=== PATIENT | female | born 1975 | race Caucasian/White ===

== ENCOUNTER → 2018-11-20 | Outpatient (CLI) | payer OTHER | LOC: COL.VAS 08:24 | DX: R03.0 Elevated blood-pressure reading, without diagnosis of hypertension (principal) ==

== ENCOUNTER → 2018-11-28 | Outpatient (CLI) | payer OTHER | LOC: COL.RAD 13:22 | DX: I10 Essential (primary) hypertension (principal); Z98.82 Breast implant status | CPT/HCPCS: Q9967 ==